=== PATIENT | female | born 1965 | race Caucasian/White ===

== ENCOUNTER → 2021-06-25 | Day surgery (SDC) | payer OTHER ==
[~2021-06-25] VITALS: Ht 185.4 cm; Wt 111.3 kg
[~2021-06-25] MED LIST: AMLODIPINE-VAL1 EAC1 PO; CHLORZOXAZONE500 MG PO; COLACE100 MG PO; CYMBALTA 30MG C30 MG PO; FEOSOL325 MG PO; HYDROXYZINE HCL50 MG PO; K-DUR20 MEQ PO; MOBIC7.5 MG PO; NEURONTIN400 MG PO; PAXIL20 MG PO; PERCOCET 5-3251 EACH PO; PERCOCET 7.5/321 TAB PO; SYNTHROID50 MCG PO; TOPROL XL 25MG25 MG PO; TRAZODONE 150 MG PO; XARELTO10 MG PO; ZANAFLEX4 MG PO
== END | disposition home or self-care (01) ==
LOC: FAS 07:52
DX: R19.5 Other fecal abnormalities (principal); K59.09 Other constipation; K64.4 Residual hemorrhoidal skin tags; I10 Essential (primary) hypertension; E03.9 Hypothyroidism, unspecified; F41.9 Anxiety disorder, unspecified; M19.90 Unspecified osteoarthritis, unspecified site; F32.9 Major depressive disorder, single episode, unspecified; G47.30 Sleep apnea, unspecified; Z90.710 Acquired absence of both cervix and uterus; Z79.899 Other long term (current) drug therapy
CPT/HCPCS: J2704; J7120